=== PATIENT | male | born 1975 | race Caucasian/White ===

== ENCOUNTER 2016-09-11 09:09 | Emergency (ER) ==
[2016-09-11 09:15] VITALS: BP 128/72; TEMP 96.9; BMI 25.2
[2016-09-11] MEDS ORDERED: TORADOL IM STA (09:20)
[2016-09-11] MEDS ORDERED: ZOFRAN 4 MG/2 ML IM STA (09:20)
[2016-09-11] MEDS ORDERED: MORPHINE 4 MG/ML SYRINGE IM STA (09:20)
--- NOTE | 2016-09-11 09:49 | CT ---
EXAM: CT scan of the chest without contrast HISTORY: Left chest wall trauma TECHNIQUE: Imaging of the chest was performed without contrast. 5 mm thin axial images and coronal and sagittal reconstructions were provided for interpretation. FINDINGS: There are minimally displaced fractures of the lateral left sixth and seventh ribs. No ot her acute traumatic abnormalities are seen. Heart is normal size. Lungs are clear. There is no pl eural separation. IMPRESSION: There are minimally displaced fractures of the lateral left sixth and seventh ribs.
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
== END 2016-09-11 10:10 | disposition home or self-care (01) ==
LOC: ED 09:09
DX: S22.42XA Multiple fractures of ribs, left side, initial encounter for closed fracture (principal); F17.210 Nicotine dependence, cigarettes, uncomplicated
CPT/HCPCS: 96372; 99283